=== PATIENT | male | born 1995 | race Hispanic/Latino ===

== ENCOUNTER 2016-07-16 19:24 | Inpatient (IN) | payer SELFPAY ==
[~2016-07-16] VITALS: Ht 172.7 cm; Wt 69.1 kg
[~2016-07-16 19:24] MED LIST: LEVETIRACETAM250 MG; OXCARBAZEPINE300 MG; OXCARBAZEPINE300 MG PO; REGLAN5 MG PO
[2016-07-16 20:33] LABS: MCH 32.1 PG (29.0-34.0); MCV 86.9 FL (86-99); MEAN PLAT.VOLUME 9.2 uM^3 (9.0-12.4); PLATELET COUNT 303 K/uL (156-360); RBC DIS.WIDTH-CV 12.1 % (11.8-14.6); RBC DIS.WIDTH-SD 38.3 % (39-53); RED BLOOD COUNT 4.95 M/uL (4.00-5.50)
[2016-07-16 20:59] LABS: CHLORIDE 107 mEq/L (99-109); POTASSIUM 4.5 mEq/L (3.7-5.4); SODIUM 138 mEq/L (136-147)
[2016-07-16 21:00] LABS: GLUCOSE 96 mg/dL (70-99)
[2016-07-16 21:02] LABS: ANION GAP 11 MEQ/L (2-14)
[2016-07-16 21:04] LABS: GFR ESTIMATE (CALCULATED) > 59 mL/min/
[2016-07-16 21:05] LABS: UREA NITROGEN (BUN) 14 mg/dL (9-23)
[2016-07-16 21:07] LABS: CREATINE KINASE 296 IU/L (1-294)
[2016-07-17 01:39] VITALS: BP 110/52
[2016-07-17 01:46] LABS: SERUM ETHYL ALCOHOL < 10 mg/dL
[2016-07-17 07:52] VITALS: BP 104/54
[2016-07-17 07:54] LABS: ADD MIUA? NO; BILIRUBIN NEGATIVE; BLOOD NEGATIVE; COLOR YELLOW ((YELLOW)); GLUCOSE (STRIP) NEGATIVE; KETONES NEGATIVE; LEUKOCYTES NEGATIVE; NITRITE NEGATIVE; PROTEIN (STRIP) NEGATIVE; SPECIFIC GRAVITY 1.019 (1.000-1.030); UCUL ADDED? NO; UROBILINOGEN 0.2 MG/DL (0.2-1.0)
[2016-07-17 08:13] LABS: AMPHETAMINES QUANT VALUE 0 NG/ML; BARBITUATES QUANT VALUE 0 NG/ML; BENZODIAZEPINES QUANT VALUE 0 NG/ML; BENZODIAZEPINES, URINE SCREEN Negative (200 ng/mL); MARIJUANA QUANT VALUE 0 NG/ML; OPIATES QUANTITATIVE VALUE 0 NG/ML; PHENCYCLIDINE QUANT VALUE 0 NG/ML
[2016-07-17 12:09] VITALS: BP 114/55
[2016-07-17] MEDS ORDERED: TOPAMAX25 MG PO (13:07)
[2016-07-17] MEDS ORDERED: TRILEPTAL300 MG PO (13:08)
[2016-07-17 16:46] VITALS: BP 104/58
[2016-07-17 20:13] VITALS: BP 101/55
[2016-07-18 00:03] VITALS: BP 112/54
[2016-07-18 04:47] VITALS: BP 90/54
[2016-07-18 05:33] VITALS: BP 96/50
[2016-07-18 07:23] VITALS: BP 92/58
[2016-07-18 11:25] VITALS: BP 96/61
[2016-07-18 15:10] VITALS: BP 112/53
== END 2016-07-18 16:48 | disposition home or self-care (01) | DRG 101 ==
LOC: EME 19:24 → EDOF 07-17 00:55 → 5EAST 07-17 01:37
PROVIDERS: Physician Assistant
DX: G40.919 Epilepsy, unspecified, intractable, without status epilepticus (principal); S00.511A Abrasion of lip, initial encounter; S00.31XA Abrasion of nose, initial encounter; S60.511A Abrasion of right hand, initial encounter; W19.XXXA Unspecified fall, initial encounter; Y92.59 Other trade areas as the place of occurrence of the external cause; T42.76XA Underdosing of unspecified antiepileptic and sedative-hypnotic drugs, initial encounter; Z91.120 Patient's intentional underdosing of medication regimen due to financial hardship
CPT/HCPCS: 70150; 70450; 80048; 80306 90; 81003; 82550; 85027; 95819; 99281; 99285; G0480; J1953; J2060; J2405; J7030; J7050